=== PATIENT | male | born 1940 | race Caucasian/White ===

== ENCOUNTER → 2017-05-10 | Outpatient (CLI) | payer OTHER ==
[~2017-05-10] VITALS: Ht 175.3 cm; Wt 90.7 kg
[~2017-05-10] MED LIST: AMLODIPINE-BEN1 EACH PO; ASPIRIN325 PO; HYDROCODONE-AP1 EAC6 PO; LASIX 80 MG TAB80 MG PO; OMEPRAZOLE40 MG PO; PRAVACHOL40 MG PO; ZOLPIDEM TARTRA10 MG PO
--- NOTE | ~2017-05-10 | S ---
[facility] [address] [address] SURGICAL PATH RPT PROCEDURE Name: KEYUR FRANCO Room #: REG BONILLA Moore.#: [id number] Admission: 05/10/17 Date of : 36 Discharge: Report #: [id number] Path Case #: [id number] PATHOLOGY REPORT DRAFT COLLECTION DATE: 05/10/2017 RECEIVED DATE: 05/10/2017 SPECIMEN(S) RECEIVED: A.Sigmoid colon polyp
== END | disposition home or self-care (01) ==
LOC: GI 07:03
DX: Z12.11 Encounter for screening for malignant neoplasm of colon (principal); K63.5 Polyp of colon; K57.30 Diverticulosis of large intestine without perforation or abscess without bleeding; K64.8 Other hemorrhoids; K21.9 Gastro-esophageal reflux disease without esophagitis; I10 Essential (primary) hypertension; E78.00 Pure hypercholesterolemia, unspecified; M19.90 Unspecified osteoarthritis, unspecified site; Z79.82 Long term (current) use of aspirin; Z79.899 Other long term (current) drug therapy; Z95.5 Presence of coronary angioplasty implant and graft; Z85.46 Personal history of malignant neoplasm of prostate; Z98.890 Other specified postprocedural states
CPT/HCPCS: 62110; 62900

== ENCOUNTER → 2020-03-09 | Outpatient (CLI) | payer OTHER | LOC: SJCVCIMAG 08:20 | DX: I65.23 Occlusion and stenosis of bilateral carotid arteries (principal); I71.4 Abdominal aortic aneurysm, without rupture; I72.3 Aneurysm of iliac artery; R00.1 Bradycardia, unspecified; I44.0 Atrioventricular block, first degree; R94.31 Abnormal electrocardiogram [ECG] [EKG]; I25.10 Atherosclerotic heart disease of native coronary artery without angina pectoris; I10 Essential (primary) hypertension; E78.2 Mixed hyperlipidemia; Z79.82 Long term (current) use of aspirin; Z79.899 Other long term (current) drug therapy; Z82.49 Family history of ischemic heart disease and other diseases of the circulatory system; Z87.891 Personal history of nicotine dependence ==

== ENCOUNTER → 2020-09-09 | Outpatient (CLI) | payer OTHER | LOC: SJCVC 12:48 | PROVIDERS: ATTEND Internal Medicine | DX: I25.10 Atherosclerotic heart disease of native coronary artery without angina pectoris (principal); R94.31 Abnormal electrocardiogram [ECG] [EKG]; I44.0 Atrioventricular block, first degree; I10 Essential (primary) hypertension; E78.5 Hyperlipidemia, unspecified; I65.23 Occlusion and stenosis of bilateral carotid arteries; I71.4 Abdominal aortic aneurysm, without rupture; C61 Malignant neoplasm of prostate; Z79.899 Other long term (current) drug therapy; Z87.891 Personal history of nicotine dependence ==

== ENCOUNTER → 2021-01-11 | Outpatient (CLI) | payer OTHER | LOC: RAD 12:55 | PROVIDERS: ATTEND Pediatrics | DX: R91.8 Other nonspecific abnormal finding of lung field (principal) ==

== ENCOUNTER → 2021-01-12 | Outpatient (CLI) | payer OTHER | LOC: CAT 09:31 | PROVIDERS: ATTEND Pediatrics | DX: J84.10 Pulmonary fibrosis, unspecified (principal); R91.8 Other nonspecific abnormal finding of lung field; R06.02 Shortness of breath ==

== ENCOUNTER → 2021-03-10 | Outpatient (CLI) | payer OTHER ==
[~2021-03-10] MED LIST changes: +ANORO ELLIPTA1 EACH INH; +KLOR-CON 10 ER10 MEQ PO; +LASIX 40 MG TAB40 M2 PO; -LASIX 80 MG TAB80 MG PO; +RAYOS5 MG PO
== END ==
LOC: SJCVCIMAG 09:00 → EDSTATUS 03-11 14:38 → SJCVCIMAG 03-11 15:00
PROVIDERS: ATTEND Internal Medicine
DX: I65.23 Occlusion and stenosis of bilateral carotid arteries (principal); I08.1 Rheumatic disorders of both mitral and tricuspid valves; I44.0 Atrioventricular block, first degree; I21.19 ST elevation (STEMI) myocardial infarction involving other coronary artery of inferior wall; I49.3 Ventricular premature depolarization; I71.4 Abdominal aortic aneurysm, without rupture; I72.3 Aneurysm of iliac artery; I72.8 Aneurysm of other specified arteries; E78.5 Hyperlipidemia, unspecified; I25.10 Atherosclerotic heart disease of native coronary artery without angina pectoris; I10 Essential (primary) hypertension; Z98.61 Coronary angioplasty status; Z79.82 Long term (current) use of aspirin; Z79.899 Other long term (current) drug therapy; Z87.891 Personal history of nicotine dependence; Z86.73 Personal history of transient ischemic attack (TIA), and cerebral infarction without residual deficits

== ENCOUNTER → 2021-03-29 | Outpatient (CLI) | payer OTHER ==
[~2021-03-29] MED LIST changes: -ANORO ELLIPTA1 EACH INH; -KLOR-CON 10 ER10 MEQ PO; -LASIX 40 MG TAB40 M2 PO; +LASIX 80 MG TAB80 MG PO; -RAYOS5 MG PO
== END ==
LOC: SJCVC 10:05
PROVIDERS: ATTEND Internal Medicine
DX: I11.0 Hypertensive heart disease with heart failure (principal); I50.32 Chronic diastolic (congestive) heart failure; I25.10 Atherosclerotic heart disease of native coronary artery without angina pectoris; E78.5 Hyperlipidemia, unspecified; I65.23 Occlusion and stenosis of bilateral carotid arteries; I71.4 Abdominal aortic aneurysm, without rupture; C61 Malignant neoplasm of prostate; Z98.61 Coronary angioplasty status; Z79.82 Long term (current) use of aspirin; Z79.899 Other long term (current) drug therapy; Z88.8 Allergy status to other drugs, medicaments and biological substances; Z72.89 Other problems related to lifestyle; Z87.891 Personal history of nicotine dependence

== ENCOUNTER → 2021-03-29 | Outpatient (CLI) | payer OTHER | LOC: RAD 11:23 | PROVIDERS: ATTEND Internal Medicine | DX: R91.8 Other nonspecific abnormal finding of lung field (principal); I51.7 Cardiomegaly; R06.02 Shortness of breath ==

== ENCOUNTER → 2021-04-09 | Outpatient (CLI) | payer OTHER ==
[~2021-04-09] VITALS: Ht 172.7 cm; Wt 85.7 kg
[~2021-04-09] MED LIST changes: +ANORO ELLIPTA1 EACH INH; +KLOR-CON 10 ER10 MEQ PO; +LASIX 40 MG TAB40 M2 PO; -LASIX 80 MG TAB80 MG PO; +RAYOS5 MG PO
--- NOTE | 2021-04-12 15:04 | P ---
[facility] [place] [address] [address] PROCEDURE REPORT Name: KEYUR FRANCO [id number] Admission: 04/09/21 Attend Phys: Molina Delgadillo Discharge: Date of : 36 Report #: [id number] THIS REPORT FOR: cc: Munir Lynn MD, Rene P. MD McElhinney, Christian C. MD ~ DOC #: [id number] cc: Munir Lynn MD, Maxime Prince MD [facility] Molina Brown MD DATE OF SERVICE: 04/09/2021 PROCEDURE PERFORMED: Upper endoscopy with esophageal dilation. HISTORY OF PRESENT ILLNESS: The patient is an 80-year-old male with recurrent dysphagia. He has undergone several upper endoscopies with dilations by me in the past, which have been helpful for usually 1-2 years. He is now having recurrent dysphagia. He does take Prilosec 40 mg on a daily basis for reflux, which controls his heartburn symptoms quite well. Plan is for a repeat upper endoscopy with dilation. DESCRIPTION OF PROCEDURE: The risks and benefits of the procedure were explained to the patient, those risks including but not limited to bleeding, perforation and the risk of sedation. He understood these risks and gave informed consent. Sedation was given using propofol per anesthesia. Next, using a standard Olympus upper endoscope, the scope was placed in the patient's mouth and advanced under direct vision through the esophagus, stomach and into the second portion of the duodenum. The larynx was normal in appearance. The esophagus was normal throughout. The GE junction was normal. No evidence of stricture or esophagitis. Overall, the gastric mucosa was normal. The pylorus was normal and patent. The duodenal bulb, first and second portion were all normal. The scope was then brought back up into the patient's stomach and a Savary guidewire was inserted through the scope, leaving the guidewire in place. The scope was then withdrawn. Next, a 51-Kyrgyz Savary dilation of the esophagus was performed without difficulty. The wire and dilator removed. The scope was reintroduced into the patient's stomach. No evidence of mucosal tear was noted after dilation. The scope was then withdrawn and the procedure terminated. The patient tolerated the procedure well. IMPRESSION: Normal upper endoscopy, status post dilation. RECOMMENDATIONS: 1. Continue daily PPI therapy. 2. Observe the patient post-dilation. Thank you for allowing me to participate in his care. [address] [address] PROCEDURE REPORT Name: KEYUR FRANCO Room #: REG [facility]#: [id number] Admission: 04/09/21 Attend Phys: Molina Delgadillo Discharge: Date of : 36 Report #: [id number] Molina Brown MD CCM/MEG <ELECTRONICALLY SIGNED> By: Molina rBown MD 04/12/21 1504 0809 10 Molina Brown MD /nt
== END | disposition home or self-care (01) ==
LOC: GI 06:53
PROVIDERS: ATTEND Specialist
DX: R13.10 Dysphagia, unspecified (principal); I10 Essential (primary) hypertension; E78.00 Pure hypercholesterolemia, unspecified; M19.90 Unspecified osteoarthritis, unspecified site; K21.9 Gastro-esophageal reflux disease without esophagitis; Z87.891 Personal history of nicotine dependence; Z98.890 Other specified postprocedural states; Z79.899 Other long term (current) drug therapy; Z85.46 Personal history of malignant neoplasm of prostate
CPT/HCPCS: 62110; 62900

== ENCOUNTER → 2021-04-20 | Outpatient (CLI) | payer OTHER ==
[~2021-04-20] VITALS: Ht 165.1 cm; Wt 88.0 kg
--- NOTE | 2021-04-20 09:45 | CATHLAB ---
[facility] [place] [place] [address] INVASIVE PROCEDURE REPORT Name: KEYUR FRANCO Room #: BOBO Moore.#: [id number] Admission: 04/20/21 Attend Phys: Maxime Prince MD, Discharge: Date of : 36 Report #: [id number] THIS REPORT FOR: cc: Munir Lynn MD, Rene P. MD Lundgren, Craig H. MD [facility] ~ APPROVED REPORT Study performed: 04/20/2021 07:49:44 Patient Details Patient Status: Out-Patient Room #: The patient is a 80 year-old male Event Personnel Maxime Prince Staff Psychiatrist, Lacy Jansen RTR Monitor, Ni Smith RN RN, Latosha Lopez RTR Scrub Procedures Performed Art Access - R femoral artery* Arnoldo Access - R femoral vein Right and Left Heart Cath w/or w/o Coronarie [id number] [facility] Hemostasis w/ Mynx 05430 Initial Mod Sed Same Phys/QHP Gr5y [id number] 56101 Mod Sed Same Phys/QHP Ea [id number] Procedure Narrative The patient was brought electively to the Cardiac Catheterization Laboratory and was prepped and draped in a sterile manner. The Right Groin^ was infiltrated with 1% Lidocaine subcutaneous anesthesia. A Right Heart Catheterization was performed with a 7 Fr. Lindsey-Ayl catheter and pressure were recorded. Cardiac outputs were obtained by the Thermal Dilution method. A PINNACLE 6FR Sheath #[id number] sheath was inserted into the RFA^. Coronary angiography was performed using coronary diagnostic catheters. The right coronary system was accessed and visualized with a JR4 catheter. The left coronary system was accessed and visualized with a JL4 catheter. The left ventricle was accessed and visualized with a ANGLED PIGTAIL catheter. Left ventriculogram was performed in 30 degree projection. Closure device was deployed with a Fr MYNXGRIP 6/7F #[id number]. The patient tolerated the procedure well and there were no complications associated with the procedure. There was no hematoma. Intraoperative Conscious Sedation Sedation start time: 8:00 Case end Time: [address] [address] INVASIVE PROCEDURE REPORT Name: KEYUR FRANCO Room #: [facility]#: [id number] Admission: 04/20/21 Attend Phys: Maxime Prince, Discharge: Date of : 36 Report #: [id number] 8:48 Fentanyl 50 mcg Versed 1 mg Fluoro Time: 4.35 minutes Dose: DAP 7380.60 cGycm2 821 mGy Contrast Type and Amount: Omnipaque 160 ml Diagnostic Cath Left Main 60-70% ostial left main stenosis LAD Minimal scattered plaquing in the proximal and mid portions of the LAD Diagonal 1 Normal first diagonal branch OM1 Large, proximal OM1 with 30-40% proximal and mid vessel plaquing OM2 Bifurcating second marginal branch with mild proximal plaquing Right Coronary Dominant right coronary with minimal scattered luminal irregularities. R PDA Normal posterior descending RPLV Mild plaquing in the posterior lateral branch Left Ventriculography The left ventricle is normal in size with normal contractility. The left ventricular ejection fraction is estimated to be 60-65%. Left ventricular wall motion abnormalities are not present. There is 1+ mitral insufficiency. Hemodynamics The right atrial mean pressure is 1 mmHg. The right ventricular pressure is 41/0 mmHg. The pulmonary artery pressure is 43/10 mmHg with a mean of 22 mmHg. The mean pulmonary capillary wedge pressure is 13 mmHg. The aortic pressure is 131/55 mmHg with a mean of 78 mmHg. The left ventricular pressure is 156/10 mmHg with a mean of mmHg. The left ventricular end diastolic pressure is 10 mmHg. The cardiac output using thermo method is 4.63 L/min. The cardiac index using thermo method is 2.37 L/min/m2. Conclusion 1. Elevated pulmonary artery pressure with normal filling pressures 2. 60-70% ostial left main stenosis [facility] [address] [place] [address] INVASIVE PROCEDURE REPORT Name: KEYUR FRANCO Room #: REG Danny#: [id number] Admission: 04/20/21 Attend Phys: Maxime Prince, Discharge: Date of : 36 Report #: [id number] 3. Mild plaquing in the LAD, circumflex and right coronary arteries. Right coronary dominant circulation <ELECTRONICALLY SIGNED> By: Maxime Prince MD, [facility] 04/20/21944 4 4 Maxime Prince MD, [facility] /INF
== END | disposition home or self-care (01) ==
LOC: CATH 06:23
PROVIDERS: ATTEND Internal Medicine
DX: I25.10 Atherosclerotic heart disease of native coronary artery without angina pectoris (principal); I10 Essential (primary) hypertension; E78.00 Pure hypercholesterolemia, unspecified; M19.90 Unspecified osteoarthritis, unspecified site; K21.9 Gastro-esophageal reflux disease without esophagitis; Z98.890 Other specified postprocedural states; Z79.899 Other long term (current) drug therapy; Z87.891 Personal history of nicotine dependence; Z85.46 Personal history of malignant neoplasm of prostate

== ENCOUNTER → 2021-04-30 | Outpatient (CLI) | payer OTHER | LOC: CAT 07:34 | PROVIDERS: ATTEND Pediatrics | DX: K76.0 Fatty (change of) liver, not elsewhere classified (principal); R06.02 Shortness of breath; R91.8 Other nonspecific abnormal finding of lung field; I25.10 Atherosclerotic heart disease of native coronary artery without angina pectoris; N28.89 Other specified disorders of kidney and ureter ==